=== PATIENT | female | born 2000 | race Caucasian/White ===

== ENCOUNTER → 2021-06-12 04:29 | Outpatient (CLI) | payer OTHER, SELFPAY ==
[2021-06-12 17:37] LABS: SARS-CoV-2 RNA PCR Positive
== END ==
PROVIDERS: PCP Family Medicine; Visit Provider Family Medicine
DX: R68.89 Other general symptoms and signs (principal); U07.1 COVID-19
CPT/HCPCS: C9803; U0003; U0005

== ENCOUNTER 2022-05-29 04:43 | Emergency (ER) | payer OTHER, SELFPAY ==
--- NOTE | ~2022-05-29 | US_ITS ---
EXAMINATION: US OB <= 14 weeks fetus DATE: 05/29/2022 05:59 INDICATION: Pelvic pain. TECHNIQUE: Real-time transabdominal and transvaginal pelvic ultrasound was performed. COMPARISON: None. FINDINGS: TRANSABDOMINAL ULTRASOUND: The uterus measures 8.7 x 4.7 x 4.1 cm.. TRANSVAGINAL ULTRASOUND: There is no visible intrauterine gestational sac. The endometrial complex me asures 12 mm in thickness. The right ovary measures 2.3 x 2.2 x 2.7 cm. The left ovary is not visuali zed. There is no free fluid in the pelvis. IMPRESSION: 1. No visible intrauterine gestational sac, which may be normal in early . Spontaneous abor tion and ectopic are not excluded. Serial beta-hCGs are recommended. Reviewed, dictated and finalized at location A. [employer] IMPRESSION: 1. No visible intrauterine gestational sac, which may be normal in early pregn nia. Spontaneous and ectopic are not excluded. Serial beta- hCGs are recommended.
[2022-05-29 04:48] VITALS: BP 130/78; PULSE 124; RESP 20; TEMP 36.9; O2SAT 98
[2022-05-29 05:05] VITALS: BP 118/81; PULSE 106; RESP 24; O2SAT 100
--- NOTE | 2022-05-29 05:13 | ECG_ITS ---
Measurements Intervals [place] Rate: 94 P: 73 NH: 134 QRS: 88 QRSD: 84 T: 48 QT: 345 QTc: 433 Interpretive Statements SINUS RHYTHM WITH SINUS ARRHYTHMIA POSSIBLE LEFT ATRIAL ENLARGEMENT BASELINE ARTIFACT- I, II, AVR, AVL BORDERLINE ECG NO PREVIOUS ECG AVAILABLE FOR COMPARISON Electronically Signed On 05-29-2022 7:49:02 HISTOTECHNOLOGIST SUPERVISOR by Thomas Flores D.O.
--- NOTE | 2022-05-29 05:29 | ED.GENADULT ---
HPI - General Adult General Chief complaint: Psychiatric Symptoms Stated complaint: , abd pain Time Seen by Provider: 05/29/22 05:07 History of Present Illness HPI narrative: Patient a 22-year-old female who presents to Emergency Department with a chief complaint of abdominal pain patient states that she just found out that she was she has been having discomfort throughout her abdomen has felt lightheaded and has also been having thoughts of wanting to . Patient states she has history of anxiety and depression reports that she has been in a bad place lately. Patient denies a specific plan to harm herself. The patient denies vaginal bleeding reports that she just feels generally unwell. Related Data Allergies Allergy/AdvReac Type Severity Reaction Status Date / Time verapamil Allergy Mild HIVES Verified 11/30/17 14:38 Review of Systems Review of Systems: A 10 system review of systems was completed on the patient and is negative except for what is stated in the HPI. Nursing and ancillary documentation was reviewed. Exam Narrative: GENERAL: Well-appearing, well-nourished, and in no acute distress. HEAD: Normocephalic, atraumatic. EYES: PERRLA and EOMI. ENT: Nares clear, no rhinorrhea or epistaxis. Mucous membranes moist. NECK: Supple. CHEST: Clear to auscultation. No respiratory distress. HEART: Regular rate and rhythm. No murmur heard. Normal peripheral pulses. ABDOMEN: Soft, nontender, nondistended, normal active bowel sounds. EXTREMITIES: Normal range of motion. No edema. SKIN: Warm, dry, no rash. NEURO: No focal deficits. Alert and oriented x3. PSYCH: Anxious Course Vital Signs Vital signs: Vital Signs Temperature 36.9 C 05/29/22 04:48 Pulse Rate 124 H 05/29/22 04:48 Respiratory Rate 20 05/29/22 04:48 Blood Pressure 130/78 05/29/22 04:48 Pulse Oximetry 98 05/29/22 04:48 Oxygen Delivery Room Air 05/29/22 04:48 Temperature 36.9 C 05/29/22 04:48 Pulse Rate 106 H 05/29/22 05:05 Respiratory Rate 24 H 05/29/22 05:05 Blood Pressure 118/81 05/29/22 05:05 Pulse Oximetry 100 05/29/22 05:05 Oxygen Delivery Room Air 05/29/22 04:48 Medical Decision Making Vital Signs Vital Signs: Vital Signs Temperature 36.9 C 05/29/22 04:48 Pulse Rate 124 H 05/29/22 04:48 Respiratory Rate 20 05/29/22 04:48 Blood Pressure 130/78 05/29/22 04:48 Pulse Oximetry 98 05/29/22 04:48 Oxygen Delivery Room Air 05/29/22 04:48 Temperature 36.9 C 05/29/22 04:48 Pulse Rate 106 H 05/29/22 05:05 Respiratory Rate 24 H 05/29/22 05:05 Blood Pressure 118/81 05/29/22 05:05 Pulse Oximetry 100 05/29/22 05:05 Oxygen Delivery Room Air 05/29/22 04:48 Discharge Plan Discharge Follow-up/Referrals: Lisa,Fang Ochoa MD [Primary Care Provider] -
[2022-05-29 05:54] LABS: Appearance Urine Slightly Cloudy (Clear); Bilirubin Urine 2+ (Negative); Blood Urine 1+ (Negative); Color Urine Yellow (Yellow); Glucose Urine UA Negative (Negative); Ketones Urine 4+ mg/dL (Negative); Leukocyte Esterase Ur 2+ LEU/UL (Negative); Nitrate Urine Negative (Negative); Protein Urine Trace mg/dL (Negative); Specific Grav Ur >= 1.030 (1.001-1.035); Urobilinogen Urine 0.2 mg/dL (<2.0); pH Urine 5.5 (5.0-9.0)
[2022-05-29 05:59] LABS: Add Urine Microscopic? YES; Bacteria Urine Trace /hpf; Mucus Urine Heavy /lpf; Squamous Epithelial Cell Urine Many /hpf (Few); WBC Urine 16-20 /hpf
[2022-05-29] MEDS: METOCLOPRAMIDE HCL INJ 10 MG/2 ML VIAL IV PUSH (06:16)
[2022-05-29] MEDS: SODIUM CHLORIDE 0.9% IV 1,000 ML 999 ML IV CONT (06:17)
[2022-05-29 06:21] LABS: Basophils Absolute Auto 0.1 K/mm3 (0.0-0.1); Basophils Percent Auto 0.6 % (0.2-1.2); Eosinophils Percent Auto 0.2 % (0-4.4); Hematocrit 40.5 % (37.0-47.0); Hemoglobin 13.8 g/dL (12.0-15.0); Immature Granulocyte Absolute 0.03 K/mm3 (0.00-0.031); Immature Granulocyte Percent A 0.3 % (0-0.5); Lymphocytes Absolute Auto 1.03 K/mm3 (0.9-3.2); Lymphocytes Percent Auto 10.5 % (18.3-44.2); Mean Corpuscular HGB Conc 34.1 g/dl (32-36); Mean Corpuscular Hemoglobin 30.5 pg (26-34); Mean Corpuscular Volume 89.6 fl (80-100); Monocytes Absolute Auto 0.6 K/mm3 (0.1-0.6); Monocytes Percent Auto 6.4 % (2.6-8.5); Platelet Count Result 324 k/mm3 (150-375); Red Blood Count 4.52 M/mm3 (4.2-5.4); Red Cell Distribution Width 11.7 % (11.5-14.5); White Blood Count 9.8 K/mm3 (4.5-10.0)
[2022-05-29 06:21] LABS: Amphetamine Screen Urine Negative (Negative); Barbiturate Screen Urine Negative (Negative); Benzodiazepines Screen Urine Negative (Negative); Cannabinoid Screen Urine Positive (Negative); Cocaine Screen Urine Negative (Negative); Methadone Screen Urine Negative (Negative); Opiate Screen Urine Negative (Negative); Phencyclidine Screen Urine Negative (Negative)
[2022-05-29 06:27] LABS: SARS-CoV-2 RNA PCR Negative
[2022-05-29 06:29] LABS: Beta HCG Quantitative 354.51 mIU/ML
[2022-05-29 06:45] LABS: Alanine Aminotransferase 18 U/L (6-35); Albumin Level 4.9 g/dL (3.5-5.1); Alkaline Phosphatase 64 U/L (38-126); Anion Gap 13 mmol/L (8-16); Aspartate Amino Transferase 23 U/L (14-36); Bilirubin,Total 0.9 mg/dL (0.2-1.3); Blood Urea Nitrogen 11 mg/dL (7-17); Calcium 9.2 mg/dL (8.4-10.2); Carbon Dioxide 21 mmol/L (22-30); Chloride 102 mmol/L (98-107); Estimated Glomerular Filt Rate > 60; Glucose 104 mg/dL (65-110); Lipase 93 U/L (23-300); Magnesium 1.8 mg/dL (1.6-2.3); Potassium 3.4 mmol/L (3.4-5.0); Sodium 136 mmol/L (137-145)
[2022-05-29 07:08] LABS: Acetaminophen < 10 ug/mL (10-30); Ethanol < 10 mg/dL (<10); Salicylate < 1.0 mg/dL (2-20)
[2022-05-29] MEDS: ONDANSETRON INJ 4 MG/2 ML VIAL IV PUSH (08:13)
[2022-05-29 11:02] LABS: Thyroid Stimulating Hormone 0.906 uIU/mL (0.465-4.680)
--- NOTE | 2022-05-29 11:27 | PC.NURSE ---
reg diet food tray ordered
[2022-05-29 14:20] VITALS: BP 120/64; PULSE 80; RESP 16; O2SAT 98
== END 2022-05-29 14:20 | disposition home or self-care (01) ==
PROVIDERS: Emergency Medicine; Emergency Provider Emergency Medicine; PCP Family Medicine
DX: O26.891 Other specified pregnancy related conditions, first trimester (principal); R10.9 Unspecified abdominal pain; O99.341 Other mental disorders complicating pregnancy, first trimester; F41.9 Anxiety disorder, unspecified; F32.A Depression, unspecified; Z20.822 Contact with and (suspected) exposure to COVID-19; R94.31 Abnormal electrocardiogram [ECG] [EKG]; Z3A.01 Less than 8 weeks gestation of pregnancy
CPT/HCPCS: 36415; 76801; 80053; 80307; 81001; 81025; 83690; 83735; 84443; 84702; 85025; 85461; 86850; 86900; 86901; 87086; 87088; 93005; 96361; 96374; 96375; 99284; J2405; J2765; J7030; U0003; U0005